=== PATIENT | male | born 1960 | race Caucasian/White ===

== ENCOUNTER 2018-02-22 15:28 | Inpatient (IN) | payer MEDICAID ==
[2018-02-22] MEDS ORDERED: Sodium Chloride 0.9% 1,000 ML IV ONE ×2 (16:46→20:26)
[2018-02-22] MEDS ORDERED: Sodium Chloride 0.9% 1,000 ML ONE (17:04)
[2018-02-22 17:05] LABS: BASO % 0.2 % (0.0-2.0); EOS % 0.3 % (0.0-4.0); LYMPH # 2.1 K/uL (1.0-4.3); LYMPH % 18.6 % (20.0-40.0); MEAN CELL VOLUME 78.7 fL (80.0-94.0); MEAN CORPUSCULAR HEMOGLOBIN 25.7 pg (27.0-31.0); MEAN CORPUSCULAR HGB CONC 32.7 g/dL (33.0-37.0); MEAN PLATELET VOLUME 7.7 fL (7.2-11.7); MONO % 8.8 % (0.0-10.0); NEUT # 8.1 K/uL (1.8-7.0); NEUT % 72.1 % (50.0-75.0); RBC 3.88 Mil/uL (4.40-5.90); RED CELL DISTRIBUTION WIDTH 16.6 % (11.5-14.5); WHITE BLOOD COUNT 11.2 K/uL (4.8-10.8)
[2018-02-22] MEDS ORDERED: Albuterol-Ipratrop 3 mg / 0.5 (3 ml) UD INH STA (17:06)
[2018-02-22] MEDS ORDERED: Albuterol-Ipratrop 3 mg / 0.5 (3 ml) UD ONE (17:17)
[2018-02-22 17:19] LABS: ALB/GLOB RATIO 0.9 (1.0-2.1); ALBUMIN 3.9 g/dL (3.5-5.0); ALT/SGPT 9 U/L (21-72); AST/SGOT 19 U/L (17-59); BLOOD UREA NITROGEN 28 mg/dL (9-20); CALCIUM 9.5 mg/dl (8.6-10.4); GFR AFRICAN-AMERICAN 40; GFR NON-AFRICAN AMERICAN 33
[2018-02-22 17:31] LABS: B-TYPE NATRIURETIC PEPTIDE 188 pg/mL (0-900)
--- NOTE | 2018-02-22 17:47 | RAD ---
HISTORY: Shortness of breath. COMPARISON: No prior. TECHNIQUE: Chest PA and lateral FINDINGS: LUNGS: No active pulmonary disease. PLEURA: No significant pleural effusion identified. No pneumothorax apparent. CARDIOVASCULAR: No radiographic findings to suggest acute or significant cardiovascular disease. OSSEOUS STRUCTURES: No significant abnormalities. VISUALIZED UPPER ABDOMEN: Normal. OTHER FINDINGS: None. IMPRESSION: No active disease.
[2018-02-22] MEDS ORDERED: Azithromycin 500mg/250ML NS 500 MG/250 ML BAG IV STA (20:26)
[2018-02-22] MEDS ORDERED: cefTRIAXone IV 1 gm in Dextros 50 ML IV STA (20:26)
--- NOTE | 2018-02-22 20:37 | C.PDOC ---
History Of Present Illness 57yo male, with history of angioplasty with 4 cardiac stents, diabetes, hypertension, high cholesterol, presents to ER for 1 month of worsening cough and chest pain. Patient was evaluated by his PMD Dr. Iglesias today and was informed to come to the ER for further evaluation. He reports associated fever, productive cough and generalized malaise. He also reports dysuria, and states has a history of hematuira but none now. PMD: Angel Iglesias Time Seen by Provider: 02/22/18 16:05 Chief Complaint (Nursing): Chest Pain History Per: Patient History/Exam Limitations: no limitations Onset/Duration Of Symptoms: Persistent Current Symptoms Are (Timing): Still Present Past Medical History Reviewed: Historical Data, Nursing Documentation, Vital Signs Vital Signs: Last Vital Signs Temp 99 F 02/23/18 16:00 Pulse 88 02/23/18 18:00 Resp 28 H 02/23/18 17:59 BP 119/62 02/23/18 17:59 Pulse Ox 96 02/23/18 17:59 - Medical History PMH: HTN Surgical History: No Surg Hx Family History: States: No Known Family Hx - Social History Hx Tobacco Use: No Hx Alcohol Use: No Hx Substance Use: No Review Of Systems Except As Marked, All Systems Reviewed And Found Negative. Constitutional: Positive for: Fever, Weakness, Malaise. Negative for: Chills, Sweats Eyes: Negative for: Pain, Vision Change, Conjunctivae Inflammation ENT: Negative for: Ear Pain, Ear Discharge, Nose Pain Cardiovascular: Positive for: Chest Pain, Light Headedness. Negative for: Palpitations, Orthopnea, Paroxysmal Noc. Dyspnea, Edema Respiratory: Positive for: Cough, Shortness of Breath, SOB with Excertion, Sputum. Negative for: Hemoptysis Gastrointestinal: Positive for: Nausea, Vomiting. Negative for: Abdominal Pain , Constipation, Melena, Hematochezia, Hematemesis Genitourinary: Positive for: Dysuria, Hematuria (history of hematuria, none at present) Musculoskeletal: Negative for: Neck Pain Skin: Negative for: Rash Neurological: Positive for: Weakness, Headache. Negative for: Numbness, Incoordination Psych: Negative for: Anxiety, Depression Physical Exam - Physical Exam Appears: Toxic, No Acute Distress Skin: Normal Color, Warm, Dry Head: Atraumatic, Normacephalic Eye(s): bilateral: Normal Inspection, PERRL, EOMI Ear(s): Bilateral: Normal Nose: Normal Oral Mucosa: Moist Tongue: Normal Appearing Lips: Normal Appearing Teeth: Normal Dentition Gingiva: Normal Appearing Throat: Normal Neck: Normal ROM, Supple Chest: Symmetrical Cardiovascular: Rhythm Regular Respiratory: Decreased Breath Sounds Gastrointestinal/Abdominal: Normal Exam, Soft, No Tenderness Back: Normal Inspection Extremity: Normal ROM, No Pedal Edema Extremity: Bilateral: Atraumatic, No Pedal Edema, Normal Color And Temperature, Normal ROM Neurological/Psych: Oriented x3 ED Course And Treatment - Laboratory Results Result Diagrams: 02/23/18 06:29 02/23/18 06:29 ECG: Interpreted By Me, Viewed By Me ECG Rhythm: Sinus Rhythm Interpretation Of ECG: MD 170. QRS 72. QT 358. QTC 442. No ischemic changes Rate From EC O2 Sat by Pulse Oximetry: 97 (RA) Pulse Ox Interpretation: Normal Medical Decision Making Medical Decision Making: Impression: Chest pain, shortness of breath Plan: -- Labs -- IV Fluids -- EKG -- Rapid flu Time: 1799 CXR reviewed and shows no acute findings. CT Chest w/o contrast ordered as patient has history of renal insufficiency Time: 2025 Serology reviewed and patient negative for influenza Labs reviewed and show white count of 11.2 BUN and creatinine elevated. Patient to be given 2nd liter of fluids Broad spectrum IV antibiotics given, tylenol given and lactate ordered. Time: 2030 CT Chest w/o contrast FINDINGS: LUNGS: Minimal dependent atelectasis. PLEURAL SPACE: No pneumothorax. No significant effusion. HEART: No cardiomegaly. No significant pericardial effusion. THYROID: 1.6cm right thyroid nodule. BONES/JOINTS: Unremarkable. No acute fracture. SOFT TISSUES: Unremarkable. VASCULATURE: Unremarkable. No thoracic aortic aneurysm. LYMPH NODES: Unremarkable. No enlarged lymph nodes. IMPRESSION: 1. 1.6cm right thyroid nodule. 2. Minimal dependent atelectasis. Time: [address] Iglesias, and patient to be admitted under his service. Disposition Counseled Patient/Family Regarding: Diagnosis - Disposition Disposition: HOSPITALIZED Disposition Time: 19:44 Condition: GOOD - Clinical Impression Clinical Impression: Chest pain, Pneumonia - Scribe Statement The provider has reviewed the documentation as recorded by the Scribe (Nikky Scott) Provider Attestation: All medical record entries made by the Scribe were at my direction and personally dictated by me. I have reviewed the chart and agree that the record accurately reflects my personal performance of the history, physical exam, medical decision making, and the department course for this patient. I have also personally directed, reviewed, and agree with the discharge instructions and disposition.
[2018-02-22] MEDS: Sodium Chloride 0.9% 1,000 ML IV SCH (23:13)
[2018-02-22] MEDS: (Novolin R) Insulin Human Regular 100 units/ml vial SC SCH (23:14)
[2018-02-23] MEDS ORDERED: Albuterol-Ipratrop 3 mg / 0.5 (3 ml) UD INH STA (00:43)
[2018-02-23] MEDS ORDERED: Albuterol-Ipratrop 3 mg / 0.5 (3 ml) UD ONE (00:50)
[2018-02-23] MEDS ORDERED: Albuterol-Ipratrop 3 mg / 0.5 (3 ml) UD INH SCH (02:00)
[2018-02-23 06:06] LABS: SQUAMOUS EPITHIAL < 1 /hpf (0-5); URINE BACTERIA FEW (<OCC); URINE BILIRUBIN NEGATIVE (NEGATIVE); URINE BLOOD 1+ (NEGATIVE); URINE CLARITY Hazy (Clear); URINE COLOR Straw (YELLOW); URINE GLUCOSE (UA) 3+ mg/dL (Normal); URINE LEUKOCYTE ESTERASE 3+ Leu/uL (Negative); URINE PROTEIN NEGATIVE (NEGATIVE); URINE UROBILINOGEN NORMAL mg/dL (0.2-1.0)
[2018-02-23 06:38] LABS: BASO % 0.3 % (0.0-2.0); EOS % 0.1 % (0.0-4.0); HEMOGLOBIN 9.5 g/dL (12.0-18.0); LYMPH # 1.7 K/uL (1.0-4.3); LYMPH % 15.6 % (20.0-40.0); MEAN CELL VOLUME 79.8 fL (80.0-94.0); MEAN CORPUSCULAR HEMOGLOBIN 26.3 pg (27.0-31.0); MEAN PLATELET VOLUME 7.7 fL (7.2-11.7); MONO # 0.8 K/uL (0.0-0.8); MONO % 7.9 % (0.0-10.0); NEUT # 8.1 K/uL (1.8-7.0); NEUT % 76.1 % (50.0-75.0); NRBC % 0.1 % (0.0-2.0); RBC 3.63 Mil/uL (4.40-5.90); RED CELL DISTRIBUTION WIDTH 16.6 % (11.5-14.5); WHITE BLOOD COUNT 10.7 K/uL (4.8-10.8)
[2018-02-23] MEDS ORDERED: Albuterol 0.083% Inhal Sol (2.5 mg/3 mL) UD INH SCH (08:00)
[2018-02-23] MEDS: Albuterol 0.083% Inhal Sol (2.5 mg/3 mL) UD INH SCH ×3 (08:22→19:45)
[2018-02-23] MEDS: Ipratropium 0.02% Inhal Soln (0.5 mg/2.5 ml) UD IH SCH ×3 (08:24→19:45)
[2018-02-23] MEDS: (Novolin R) Insulin Human Regular 100 units/ml vial SC SCH ×5 (08:25→21:58)
[2018-02-23] MEDS: Sodium Chloride 0.9% 1,000 ML IV SCH ×2 (08:29→21:00)
--- NOTE | 2018-02-23 09:13 | CT ---
PROCEDURE: CT Chest without contrast HISTORY: sob fever COMPARISON: Chest x-ray 02/22/2018 TECHNIQUE: Contiguous axial images were obtained through the chest without intravenous contrast enhancement. Sagittal and coronal reconstructions were performed. Radiation dose (DLP): 383 mGy-cm. This CT exam was performed using one or more of the following dose reduction techniques: Automated exposure control, adjustment of the mA and/or kV according to patient size, and/or use of iterative reconstruction technique. FINDINGS: LUNGS: There is a 0.4 cm nodule in the right upper lobe (axial series 3, image 33). Small area of ground-glass airspace opacity noted right upper lobe. The trachea and major segmental bronchi are patent. MEDIASTINUM: Heart size is within normal limits. There is no significant pericardial effusion. Cardiovascular calcifications noted. Thoracic aorta is normal in caliber. Main pulmonary artery is normal in caliber. There is no significant axillary, mediastinal, or hilar lymphadenopathy. PLEURA: No pleural effusion is identified. BONES: No acute fracture identified. Small sclerotic focus in the of right 2nd rib, likely bone island. UPPER ABDOMEN: Partially visualized colonic diverticulosis. Splenomegaly. Remainder of the visualized upper abdominal viscera are grossly unremarkable. OTHER FINDINGS: There is a 1.4 cm hypodense nodule in the posterior right lobe of the thyroid. Visualized thyroid gland is mildly heterogeneous. Mild bilateral gynecomastia. IMPRESSION: Small focus ground-glass airspace opacity right upper lobe. Findings may represent infectious/ inflammatory process. Right upper lobe 0.4 cm nodule. Consider follow-up CT chest in 12 months depending on patient's risk factors. Right lobe thyroid nodule measuring 1.4 cm. Recommend nonemergent/outpatient thyroid ultrasound for further evaluation. Preliminary impression was provided by [facility]. Findings are discordant. Findings discussed with the ER PA, Madonna Crow, at 9:11 a.m. on 02/23/2018.
--- NOTE | 2018-02-23 09:23 | CP.PCM.HP ---
History of Present Illness - History of Present Illness History of Present Illness: CC: chest pain HPI: 57yo male, with history of angioplasty with 4 cardiac stents, diabetes, hypertension, high cholesterol, presents to ER for 1 month of worsening cough and chest pain. Patient was evaluated by me today and was informed to come to the ER for further evaluation. He reports associated fever, productive cough and generalized malaise. He also reports dysuria, and states has a history of hematuira but none now. Present on Admission - Present on Admission Any Indicators Present on Admission: No Past Patient History - Past Medical History & Family History Past Medical History?: Yes - Past Social History Smoking Status: Unknown If Ever Smoked - CARDIAC Hx Hypertension: Yes - PULMONARY Hx Pneumonia: Yes - ENDOCRINE/METABOLIC Hx Diabetes Mellitus Type 2: Yes - MUSCULOSKELETAL/RHEUMATOLOGICAL Hx Falls: No - PSYCHIATRIC Hx Substance Use: No - SURGICAL HISTORY Hx Surgeries: No Hx Coronary Stent: Yes - ANESTHESIA Hx Anesthesia: Yes Hx Anesthesia Reactions: No Hx Malignant Hyperthermia: No Has any member of the family had a problem w/ anesthesia?: No Meds Allergies/Adverse Reactions: Allergies Allergy/AdvReac Type Severity Reaction Status Date / Time No Known Allergies Allergy Unverified 02/22/18 16:09 Results - Vital Signs Recent Vital Signs: Last Vital Signs Temp 98.8 F 02/23/18 04:02 Pulse 91 H 02/23/18 06:40 Resp 28 H 02/23/18 06:40 BP 118/67 02/23/18 05:58 Pulse Ox 98 02/23/18 06:40 - Labs Result Diagrams: 02/23/18 06:29 02/23/18 06:29 Labs: Laboratory Results - last 24 hr 02/22/18 02/22/18 02/22/18 17:01 17:01 22:08 WBC 11.2 H RBC 3.88 L Hgb 10.0 L Hct 30.5 L MCV 78.7 L MCH 25.7 L MCHC 32.7 L RDW 16.6 H Plt Count 267 MPV 7.7 Neut % (Auto) 72.1 Lymph % (Auto) 18.6 L [place] % (Auto) 8.8 Eos % (Auto) 0.3 Baso % (Auto) 0.2 Neut # (Auto) 8.1 H Lymph # (Auto) 2.1 Lawrence # (Auto) 1.0 H Eos # (Auto) 0.0 Baso # (Auto) 0.0 Sodium 140 Potassium 5.1 Chloride 105 Carbon Dioxide 23 Anion Gap 18 BUN 28 H Creatinine 2.1 H Est GFR ( Amer) 40 Est GFR (Non-Af Amer) 33 POC Glucose (mg/dL) 123 H Random Glucose 124 H Lactic Acid Calcium 9.5 Total Bilirubin 0.6 AST 19 ALT 9 L Alkaline Phosphatase 59 Troponin I < 0.0120 NT-Pro-B Natriuret Pep 188 Total Protein 8.1 Albumin 3.9 Globulin 4.2 H Albumin/Globulin Ratio 0.9 L Urine Color Urine Clarity Urine pH Ur Specific [place] Urine Protein Urine Glucose (UA) Urine Ketones Urine Blood Urine Nitrate Urine Bilirubin Urine Urobilinogen Ur Leukocyte Esterase Urine WBC (Auto) Urine RBC (Auto) Ur Squamous Epith Cells Urine Bacteria Urine Yeast (Budding) Influenza Typ A,B (EIA) 02/22/18 02/22/18 02/23/18 22:35 Unknown 05:50 WBC RBC Hgb Hct MCV MCH MCHC RDW Plt Count MPV Neut % (Auto) Lymph % (Auto) [place] % (Auto) Eos % (Auto) Baso % (Auto) Neut # (Auto) Lymph # (Auto) [place] # (Auto) Eos # (Auto) Baso # (Auto) Sodium Potassium Chloride Carbon Dioxide Anion Gap BUN Creatinine Est GFR ( Amer) Est GFR (Non-Af Amer) POC Glucose (mg/dL) Random Glucose Lactic Acid 0.9 Calcium Total Bilirubin AST ALT Alkaline Phosphatase Troponin I NT-Pro-B Natriuret Pep Total Protein Albumin Globulin Albumin/Globulin Ratio Urine Color Straw Urine Clarity Hazy Urine pH 6.0 Ur Specific [place] 1.010 Urine Protein Negative Urine Glucose (UA) 3+ H Urine Ketones Negative Urine Blood 1+ H Urine Nitrate Negative Urine Bilirubin Negative Urine Urobilinogen Normal Ur Leukocyte Esterase 3+ H Urine WBC (Auto) 163 H Urine RBC (Auto) 11 H Ur Squamous Epith Cells < 1 Urine Bacteria Few H Urine Yeast (Budding) Few H Influenza Typ A,B (EIA) Negative for flu a/b 02/23/18 02/23/18 02/23/18 06:29 06:29 07:26 WBC 10.7 RBC 3.63 L Hgb 9.5 L Hct 29.0 L MCV 79.8 L MCH 26.3 L MCHC 33.0 RDW 16.6 H Plt Count 233 MPV 7.7 Neut % (Auto) 76.1 H Lymph % (Auto) 15.6 L [place] % (Auto) 7.9 Eos % (Auto) 0.1 Baso % (Auto) 0.3 Neut # (Auto) 8.1 H Lymph # (Auto) 1.7 Lawrence # (Auto) 0.8 Eos # (Auto) 0.0 Baso # (Auto) 0.0 Sodium 144 Potassium 5.1 Chloride 112 H Carbon Dioxide 18 L Anion Gap 19 BUN 26 H Creatinine 1.6 H Est GFR ( Amer) 55 Est GFR (Non-Af Amer) 45 POC Glucose (mg/dL) 203 H Random Glucose 183 H Lactic Acid Calcium 9.0 Total Bilirubin AST ALT Alkaline Phosphatase Troponin I NT-Pro-B Natriuret Pep Total Protein Albumin Globulin Albumin/Globulin Ratio Urine Color Urine Clarity Urine pH Ur Specific [place] Urine Protein Urine Glucose (UA) Urine Ketones Urine Blood Urine Nitrate Urine Bilirubin Urine Urobilinogen Ur Leukocyte Esterase Urine WBC (Auto) Urine RBC (Auto) Ur Squamous Epith Cells Urine Bacteria Urine Yeast (Budding) Influenza Typ A,B (EIA)
[2018-02-23] MEDS ORDERED: Omega-3-Acid Ethyl Esters 1 GM Cap PO SCH (10:00)
[2018-02-23] MEDS: Omega-3-Acid Ethyl Esters 1 GM Cap PO SCH ×2 (10:35→18:28)
[2018-02-23] MEDS: Azithromycin 500 MG in Sodium Chloride 0.9% 250 ML IVPB SCH (12:11)
--- NOTE | 2018-02-23 12:12 | CARD ---
APPROVED REPORT EKG Measurement Heart [id number] <Conclusion> Normal sinus rhythm Normal ECG
[2018-02-23] MEDS: Metoprolol Succinate 50 mg XL Tab PO SCH (12:45)
--- NOTE | 2018-02-23 13:37 | CP.PCM.PN ---
Subjective - Date & Time of Evaluation Date of Evaluation: 02/23/18 Time of Evaluation: 13:34 - Subjective Subjective: PT AND DAUGHTER REQUESTED TO BE SEEN BY DR. HAMILTON TO DISCUSS PT'S PLAN FOR DISCHARGE PT IS REQUESTING TO GO HOME TODAY. I NOTIFIED DR. HAMILTON OF THIS WHO STATED PT CAN AMA W A RX FOR AUGMENTIN X7 DAYS IF HE DOES NOT WANT TO STAY IN THE HOSPITAL. I SPOKE AT LENGTH WITH PT AND DAUGHTER AND ADDRESSED ALL CONCERNS. REVIEWED VITALS AND LABS W THEM WELL. PT ADMITS TO FEELING "A LITTLE BETTER BUT NOT MUCH." ALSO ADMITS TO COUGHING "ALOT." I ENCOURAGED PT TO STAY UNTIL AT LEAST TOMORROW TO CONTINUE IV ABX AND IVFS. HE WILL BE RE-EVAL' D TOMORROW FOR POSSIBLE D/C IF HE REMAINS STABLE AND AFEBRILE. REPEAT LABS ORDERED FOR TOMORROW MORNING. WILL F/U TOMORROW. NO FURTHER ORDERS AT THIS TIME. Objective - Vital Signs/Intake and Output Vital Signs (last 24 hours): Temp Pulse Resp BP Pulse Ox 99.6 F 84 29 H 120/61 98 02/23/18 08:00 02/23/18 11:59 02/23/18 11:59 02/23/18 11:59 02/23/18 11:59 Intake and Output: 02/23/18 02/23/18 06:59 18:59 Intake Total 2750 100 Output Total 1550 0 Balance 1200 100 - Medications Medications: Current Medications Acetaminophen (Tylenol 325mg Tab) 650 mg PO Q6 PRN PRN Reason: Fever >100.4 F Albuterol Sulfate (Albuterol 0.083% Inhal Jen (2.5 Mg/3 Ml) Ud) 2.5 mg INH RQ6 [facility] Last Admin: 02/23/18 08:22 Dose: 2.5 mg Aspirin (Aspirin Chewable) 81 mg PO DAILY [facility] Last Admin: 02/23/18 10:12 Dose: 81 mg Fenofibrate (Tricor) 145 mg PO DAILY [facility] Last Admin: 02/23/18 10:34 Dose: 145 mg Glipizide (Glucotrol) 10 mg PO BID [facility] Last Admin: 02/23/18 10:00 Dose: Not Given Heparin Sodium (Porcine) (Heparin) 5,000 units SC Q8 [facility] Last Admin: 02/23/18 06:28 Dose: 5,000 units Ceftriaxone Sodium 1 gm/ (Sodium Chloride) 100 mls @ 100 mls/hr IVPB DAILY [facility] PRN Reason: Protocol Last Admin: 02/23/18 10:12 Dose: 100 mls/hr Sodium Chloride (Sodium Chloride 0.9%) 1,000 mls @ 100 mls/hr IV .Q10H [facility] Last Admin: 02/23/18 08:29 Dose: 100 mls/hr Azithromycin 500 mg/ Sodium (Chloride) 250 mls @ 250 mls/hr IVPB DAILY [facility] PRN Reason: Protocol Last Admin: 02/23/18 12:11 Dose: 250 mls/hr Insulin Human Regular (Novolin R) 0 unit SC ACHS [facility] PRN Reason: Protocol Last Admin: 02/23/18 12:43 Dose: 3 unit Ipratropium [place] (Atrovent) 0.5 mg IH RQ6 [facility] Last Admin: 02/23/18 08:24 Dose: 0.5 mg Metoprolol Succinate (Toprol Xl) 50 mg PO DAILY [facility] Last Admin: 02/23/18 12:45 Dose: 50 mg Katte-8-Vsmy Ethyl Esters (Lovaza) 2 gm PO BID [facility] Last Admin: 02/23/18 10:35 Dose: 2 gm - Labs Labs: 02/23/18 06:29 02/23/18 06:29
[2018-02-24] MEDS: Albuterol 0.083% Inhal Sol (2.5 mg/3 mL) UD INH SCH ×4 (01:12→20:40)
[2018-02-24] MEDS: Ipratropium 0.02% Inhal Soln (0.5 mg/2.5 ml) UD IH SCH ×4 (01:12→20:40)
--- NOTE | 2018-02-24 01:19 | CP.PCM.PN ---
Subjective - Date & Time of Evaluation Date of Evaluation: 02/23/18 Time of Evaluation: 21:00 - Subjective Subjective: Pt is started feeling better, positive cough, less short of breath, pt came in with fever, weakness, he is knwn diabetic, he is non complaint with diet, medication and follow up, pt has been diagnosed with pnemonia Objective - Vital Signs/Intake and Output Vital Signs (last 24 hours): Temp Pulse Resp BP Pulse Ox 99.1 F 83 33 H 114/64 97 02/23/18 20:00 02/23/18 22:00 02/23/18 22:00 02/23/18 21:59 02/23/18 22:00 Intake and Output: 02/23/18 02/24/18 18:59 06:59 Intake Total 1810 500 Output Total 1100 400 Balance 710 100 - Medications Medications: Current Medications Acetaminophen (Tylenol 325mg Tab) 650 mg PO Q6 PRN PRN Reason: Fever >100.4 F Albuterol Sulfate (Albuterol 0.083% Inhal Jen (2.5 Mg/3 Ml) Ud) 2.5 mg INH RQ6 [facility] Last Admin: 02/24/18 01:12 Dose: 2.5 mg Aspirin (Aspirin Chewable) 81 mg PO DAILY [facility] Last Admin: 02/23/18 10:12 Dose: 81 mg Fenofibrate (Tricor) 145 mg PO DAILY [facility] Last Admin: 02/23/18 10:34 Dose: 145 mg Glipizide (Glucotrol) 10 mg PO BID [facility] Last Admin: 02/23/18 18:27 Dose: Not Given Heparin Sodium (Porcine) (Heparin) 5,000 units SC Q8 [facility] Last Admin: 02/23/18 21:01 Dose: 5,000 units Ceftriaxone Sodium 1 gm/ (Sodium Chloride) 100 mls @ 100 mls/hr IVPB DAILY [facility] PRN Reason: Protocol Last Admin: 02/23/18 10:12 Dose: 100 mls/hr Sodium Chloride (Sodium Chloride 0.9%) 1,000 mls @ 100 mls/hr IV .Q10H [facility] Last Admin: 02/23/18 21:00 Dose: 100 mls/hr Azithromycin 500 mg/ Sodium (Chloride) 250 mls @ 250 mls/hr IVPB DAILY [facility] PRN Reason: Protocol Last Admin: 02/23/18 12:11 Dose: 250 mls/hr Insulin Human Regular (Novolin R) 0 unit SC ACHS [facility] PRN Reason: Protocol Last Admin: 02/23/18 21:58 Dose: Not Given Ipratropium [place] (Atrovent) 0.5 mg IH RQ6 [facility] Last Admin: 02/24/18 01:12 Dose: 0.5 mg Metoprolol Succinate (Toprol Xl) 50 mg PO DAILY [facility] Last Admin: 02/23/18 12:45 Dose: 50 mg Vdupg-9-Egxy Ethyl Esters (Lovaza) 2 gm PO BID [facility] Last Admin: 02/23/18 18:28 Dose: 2 gm Ondansetron HCl (Zofran Inj) 4 mg IVP Q6 PRN PRN Reason: Nausea/Vomiting Last Admin: 02/23/18 15:24 Dose: 4 mg - Labs Labs: 02/23/18 06:29 02/23/18 06:29 - Constitutional Appears: No Acute Distress - Head Exam Head Exam: ATRAUMATIC, NORMAL INSPECTION, NORMOCEPHALIC - Eye Exam Eye Exam: EOMI, Normal appearance, PERRL Pupil Exam: NORMAL ACCOMODATION, PERRL - Respiratory Exam Respiratory Exam: Decreased Breath Sounds, Rales, Rhonchi - Cardiovascular Exam Cardiovascular Exam: REGULAR RHYTHM, +S1, +S2. absent: Murmur - GI/Abdominal Exam GI & Abdominal Exam: Soft, Normal Bowel Sounds. absent: Tenderness - Rectal Exam Rectal Exam: Deferred Assessment and Plan (1) Chest pain Status: Acute (2) Pneumonia Status: Acute (3) Diabetes Status: Acute
[2018-02-24] MEDS: Sodium Chloride 0.9% 1,000 ML IV SCH ×2 (04:15→13:33)
[2018-02-24 06:06] VITALS: RESP 20
[2018-02-24 06:09] LABS: HEMOGLOBIN 9.3 g/dL (12.0-18.0); MEAN CELL VOLUME 79.5 fL (80.0-94.0); MEAN CORPUSCULAR HEMOGLOBIN 26.1 pg (27.0-31.0); MEAN CORPUSCULAR HGB CONC 32.9 g/dL (33.0-37.0); MEAN PLATELET VOLUME 7.8 fL (7.2-11.7); RBC 3.57 Mil/uL (4.40-5.90); RED CELL DISTRIBUTION WIDTH 16.4 % (11.5-14.5); WHITE BLOOD COUNT 8.8 K/uL (4.8-10.8)
[2018-02-24 06:34] LABS: BLOOD UREA NITROGEN 19 mg/dL (9-20); CALCIUM 8.9 mg/dl (8.6-10.4); GFR AFRICAN-AMERICAN > 60; GFR NON-AFRICAN AMERICAN 53
[2018-02-24] MEDS: (Novolin R) Insulin Human Regular 100 units/ml vial SC SCH ×4 (08:30→21:36)
[2018-02-24] MEDS: Metoprolol Succinate 50 mg XL Tab PO SCH (09:57)
[2018-02-24] MEDS: Omega-3-Acid Ethyl Esters 1 GM Cap PO SCH ×2 (09:58→17:33)
[2018-02-24] MEDS: Azithromycin 500 MG in Sodium Chloride 0.9% 250 ML IVPB SCH (10:27)
--- NOTE | 2018-02-24 23:51 | CP.PCM.PN ---
Subjective - Date & Time of Evaluation Date of Evaluation: 02/24/18 Time of Evaluation: 19:00 - Subjective Subjective: Pt is seen and evaluated at bedside, improving, pt is feeling better, BUN/ Creatinine is improving, afberile, cough and congested. Objective - Vital Signs/Intake and Output Vital Signs (last 24 hours): Temp Pulse Resp BP Pulse Ox 98.3 F 67 20 118/76 96 02/24/18 17:05 02/24/18 17:05 02/24/18 17:05 02/24/18 17:05 02/24/18 17:05 - Medications Medications: Current Medications Acetaminophen (Tylenol 325mg Tab) 650 mg PO Q6 PRN PRN Reason: Fever >100.4 F Albuterol Sulfate (Albuterol 0.083% Inhal Jen (2.5 Mg/3 Ml) Ud) 2.5 mg INH RQ6 [facility] Last Admin: 02/24/18 20:40 Dose: 2.5 mg Aspirin (Aspirin Chewable) 81 mg PO DAILY [facility] Last Admin: 02/24/18 09:57 Dose: 81 mg Fenofibrate (Tricor) 145 mg PO DAILY [facility] Last Admin: 02/24/18 10:15 Dose: 145 mg Glipizide (Glucotrol) 10 mg PO BID [facility] Last Admin: 02/24/18 17:33 Dose: 10 mg Heparin Sodium (Porcine) (Heparin) 5,000 units SC Q8 [facility] Last Admin: 02/24/18 21:38 Dose: 5,000 units Ceftriaxone Sodium 1 gm/ (Sodium Chloride) 100 mls @ 100 mls/hr IVPB DAILY [facility] PRN Reason: Protocol Last Admin: 02/24/18 09:57 Dose: 100 mls/hr Sodium Chloride (Sodium Chloride 0.9%) 1,000 mls @ 100 mls/hr IV .Q10H [facility] Last Admin: 02/24/18 13:33 Dose: Not Given Azithromycin 500 mg/ Sodium (Chloride) 250 mls @ 250 mls/hr IVPB DAILY [facility] PRN Reason: Protocol Last Admin: 02/24/18 10:27 Dose: 250 mls/hr Insulin Human Regular (Novolin R) 0 unit SC ACHS [facility] PRN Reason: Protocol Last Admin: 02/24/18 21:36 Dose: Not Given Ipratropium [place] (Atrovent) 0.5 mg IH RQ6 [facility] Last Admin: 02/24/18 20:40 Dose: 0.5 mg Metoprolol Succinate (Toprol Xl) 50 mg PO DAILY [facility] Last Admin: 02/24/18 09:57 Dose: 50 mg Byani-9-Cbxv Ethyl Esters (Lovaza) 2 gm PO BID [facility] Last Admin: 02/24/18 17:33 Dose: 2 gm Ondansetron HCl (Zofran Inj) 4 mg IVP Q6 PRN PRN Reason: Nausea/Vomiting Last Admin: 02/23/18 15:24 Dose: 4 mg Pneumococcal Polyvalent Vaccine (Pneumovax 23 Vaccine) 0.5 ml IM .ONCE ONE Stop: 02/25/18 10:01 - Labs Labs: 02/24/18 06:01 02/24/18 06:01 - Constitutional Appears: No Acute Distress - Head Exam Head Exam: ATRAUMATIC, NORMAL INSPECTION, NORMOCEPHALIC - Eye Exam Eye Exam: EOMI, Normal appearance, PERRL Pupil Exam: NORMAL ACCOMODATION, PERRL - Respiratory Exam Respiratory Exam: Decreased Breath Sounds, Rales, Rhonchi - Cardiovascular Exam Cardiovascular Exam: REGULAR RHYTHM, +S1, +S2. absent: Murmur - GI/Abdominal Exam GI & Abdominal Exam: Soft, Normal Bowel Sounds. absent: Tenderness Assessment and Plan (1) Chest pain Status: Acute (2) Pneumonia Status: Acute (3) Diabetes Status: Acute
[2018-02-25] MEDS: Sodium Chloride 0.9% 1,000 ML IV SCH ×2 (00:53→09:57)
[2018-02-25] MEDS: Albuterol 0.083% Inhal Sol (2.5 mg/3 mL) UD INH SCH ×2 (01:46→07:55)
[2018-02-25] MEDS: Ipratropium 0.02% Inhal Soln (0.5 mg/2.5 ml) UD IH SCH (01:47)
[2018-02-25 07:40] LABS: HEMOGLOBIN 9.7 g/dL (12.0-18.0); MEAN CELL VOLUME 78.9 fL (80.0-94.0); MEAN CORPUSCULAR HEMOGLOBIN 26.3 pg (27.0-31.0); MEAN CORPUSCULAR HGB CONC 33.3 g/dL (33.0-37.0); MEAN PLATELET VOLUME 7.5 fL (7.2-11.7); RBC 3.68 Mil/uL (4.40-5.90); RED CELL DISTRIBUTION WIDTH 16.6 % (11.5-14.5); WHITE BLOOD COUNT 6.2 K/uL (4.8-10.8)
[2018-02-25 07:55] VITALS: BP 134/82; PULSE 70; TEMP 98; O2SAT 100
[2018-02-25 07:58] LABS: BLOOD UREA NITROGEN 14 mg/dL (9-20); CALCIUM 9.1 mg/dl (8.6-10.4); GFR AFRICAN-AMERICAN > 60; GFR NON-AFRICAN AMERICAN 53
[2018-02-25] MEDS: (Novolin R) Insulin Human Regular 100 units/ml vial SC SCH (08:30)
[2018-02-25] MEDS: Metoprolol Succinate 50 mg XL Tab PO SCH (09:49)
[2018-02-25] MEDS: Omega-3-Acid Ethyl Esters 1 GM Cap PO SCH (09:49)
[2018-02-25] MEDS ORDERED: Pneumococcal 23-Valent Vaccine IM ONE (10:00)
--- NOTE | 2018-02-25 11:56 | CP.PCM.PN ---
Subjective - Date & Time of Evaluation Date of Evaluation: 02/25/18 Time of Evaluation: 11:56 - Subjective Subjective: PATIENT IS ADMITTED FOR PNA AND SEPSIS AAOX3/ ON ROOM AIR/ DAUGHTER AT THE BEDSIDE NO SIGN OF DISTRESS NOTED Objective - Vital Signs/Intake and Output Vital Signs (last 24 hours): Temp Pulse Resp BP Pulse Ox 98.0 F 70 20 134/82 100 02/25/18 07:10 02/25/18 07:10 02/25/18 07:10 02/25/18 07:10 02/25/18 07:10 - Medications Medications: Current Medications Acetaminophen (Tylenol 325mg Tab) 650 mg PO Q6 PRN PRN Reason: Fever >100.4 F Albuterol Sulfate (Albuterol 0.083% Inhal Jen (2.5 Mg/3 Ml) Ud) 2.5 mg INH RQ6 [facility] Last Admin: 02/25/18 07:55 Dose: 2.5 mg Aspirin (Aspirin Chewable) 81 mg PO DAILY [facility] Last Admin: 02/25/18 09:50 Dose: 81 mg Fenofibrate (Tricor) 145 mg PO DAILY [facility] Last Admin: 02/25/18 09:49 Dose: 145 mg Glipizide (Glucotrol) 10 mg PO BID [facility] Last Admin: 02/25/18 09:49 Dose: 10 mg Heparin Sodium (Porcine) (Heparin) 5,000 units SC Q8 [facility] Last Admin: 02/25/18 05:00 Dose: 5,000 units Ceftriaxone Sodium 1 gm/ (Sodium Chloride) 100 mls @ 100 mls/hr IVPB DAILY [facility] PRN Reason: Protocol Last Admin: 02/25/18 09:54 Dose: 100 mls/hr Sodium Chloride (Sodium Chloride 0.9%) 1,000 mls @ 100 mls/hr IV .Q10H [facility] Last Admin: 02/25/18 09:57 Dose: 100 mls/hr Azithromycin 500 mg/ Sodium (Chloride) 250 mls @ 250 mls/hr IVPB DAILY [facility] PRN Reason: Protocol Last Admin: 02/24/18 10:27 Dose: 250 mls/hr Insulin Human Regular (Novolin R) 0 unit SC ACHS [facility] PRN Reason: Protocol Last Admin: 02/25/18 08:30 Dose: 2 unit Ipratropium [place] (Atrovent) 0.5 mg IH RQ6 [facility] Last Admin: 02/25/18 01:47 Dose: 0.5 mg Metoprolol Succinate (Toprol Xl) 50 mg PO DAILY [facility] Last Admin: 02/25/18 09:49 Dose: 50 mg Suits-7-Yvun Ethyl Esters (Lovaza) 2 gm PO BID [facility] Last Admin: 02/25/18 09:49 Dose: 2 gm Ondansetron HCl (Zofran Inj) 4 mg IVP Q6 PRN PRN Reason: Nausea/Vomiting Last Admin: 02/23/18 15:24 Dose: 4 mg - Labs Labs: 02/25/18 07:31 02/25/18 07:31 Assessment and Plan - Assessment and Plan (Free Text) Assessment: PATIENT SEEN AND EXAMINED WITH PMD AT THE BEDSIDE NO FEVER/VITALS ARE NORMAL/NO LEUKOCYTOSIS NOTED DISCUSS WTIH DR HAMILTON WHO CLEAR PATIENT FOR DC FOLLOW UP WITH DR HAMILTON IN 1-2 WEEK AT HIS OFFICE ---CALL FOR APPOINTMENT CONTINUE ALL YOU HOME MEDICATION NEW PRESCRIPTION BY IMD LEVAQUIN PO FOR 5 DAYS TESSALON PO TID FOR COUGH ACTIVITY TOLERATED CALL DR HAMILTON OR GO TO THE EMERGENCY ROOM IF SYMPTOMS RETURN OR WORSENING DISCUSS WITH PATIENT AND PATIENT DAUGHTER WHO AGREE AND VERBALIZED UNDERSTANDING
--- NOTE | 2018-02-25 16:50 | CP.PCM.DIS ---
Provider - Provider Date of Admission: 02/22/18 20:48 Attending physician: Aakash Iglesias MD Time Spent in preparation of Discharge (in minutes): 45 Diagnosis - Discharge Diagnosis (1) Chest pain Status: Acute (2) Pneumonia Status: Acute (3) Diabetes Status: Acute Hospital Course - Lab Results Lab Results: Micro Results 02/24/18 05:24 Naris MRSA Culture - Final MRSA NOT DETECTED 02/22/18 08:19 Blood Blood Culture - Preliminary NO GROWTH AFTER 48 HOURS 02/22/18 08:19 Blood Blood Culture - Preliminary NO GROWTH AFTER 48 HOURS 02/22/18 17:47 Blood Blood Culture - Preliminary NO GROWTH AFTER 48 HOURS 02/22/18 16:30 Blood Blood Culture - Preliminary NO GROWTH AFTER 48 HOURS 02/23/18 05:50 Urine Urine Culture - Final No Growth (<1,000 CFU/ML) 02/23/18 05:56 Nose MRSA Culture (Admit) - Final MRSA NOT DETECTED Most Recent Lab Values WBC 6.2 K/uL (4.8-10.8) 02/25/18 07:31 RBC 3.68 Mil/uL (4.40-5.90) L 02/25/18 07:31 Hgb 9.7 g/dL (12.0-18.0) L 02/25/18 07:31 Hct 29.0 % (35.0-51.0) L 02/25/18 07:31 MCV 78.9 fL (80.0-94.0) L 02/25/18 07:31 MCH 26.3 pg (27.0-31.0) L 02/25/18 07:31 MCHC 33.3 g/dL (33.0-37.0) 02/25/18 07:31 RDW 16.6 % (11.5-14.5) H 02/25/18 07:31 Plt Count 252 K/uL (130-400) 02/25/18 07:31 MPV 7.5 fL (7.2-11.7) 02/25/18 07:31 Neut % (Auto) 76.1 % (50.0-75.0) H 02/23/18 06:29 Lymph % (Auto) 15.6 % (20.0-40.0) L 02/23/18 06:29 [place] % (Auto) 7.9 % (0.0-10.0) 02/23/18 06:29 Eos % (Auto) 0.1 % (0.0-4.0) 02/23/18 06: Baso % (Auto) 0.3 % (0.0-2.0) 02/23/18 06:29 Neut # (Auto) 8.1 K/uL (1.8-7.0) H 02/23/18 06: Lymph # (Auto) 1.7 K/uL (1.0-4.3) 02/23/18 06:29 [place] # (Auto) 0.8 K/uL (0.0-0.8) 02/23/18 06: Eos # (Auto) 0.0 K/uL (0.0-0.7) 02/23/18 06: Baso # (Auto) 0.0 K/uL (0.0-0.2) 02/23/18 06:29 Sodium 145 mmol/L (132-148) 02/25/18 07:31 Potassium 4.2 mmol/L (3.6-5.2) 02/25/18 07:31 Chloride 111 mmol/L (98-107) H 02/25/18 07:31 Carbon Dioxide 20 mmol/L (22-30) L 02/25/18 07:31 Anion Gap 19 (10-20) 02/25/18 07:31 BUN 14 mg/dL (9-20) 02/25/18 07:31 Creatinine 1.4 mg/dL (0.8-1.5) 02/25/18 07:31 Est GFR ( Amer) > 60 02/25/18 07:31 Est GFR (Non-Af Amer) 53 02/25/18 07:31 POC Glucose (mg/dL) 180 mg/dL (65-110) H 02/25/18 06:17 Random Glucose 164 mg/dL (75-110) H 02/25/18 07:31 Lactic Acid 0.9 mmol/L (0.7-2.1) 02/22/18 22:35 Calcium 9.1 mg/dl (8.6-10.4) 02/25/18 07:31 Total Bilirubin 0.6 mg/dL (0.2-1.3) 02/22/18 17:01 AST 19 U/L (17-59) 02/22/18 17:01 ALT 9 U/L (21-72) L 02/22/18 17:01 Alkaline Phosphatase 59 U/L (38-126) 02/22/18 17:01 Troponin I < 0.0120 ng/mL (0.00-0.120) 02/22/18 17:01 NT-Pro-B Natriuret Pep 188 pg/mL (0-900) 02/22/18 17:01 Total Protein 8.1 g/dL (6.3-8.3) 02/22/18 17:01 Albumin 3.9 g/dL (3.5-5.0) 02/22/18 17:01 Globulin 4.2 gm/dL (2.2-3.9) H 02/22/18 17:01 Albumin/Globulin Ratio 0.9 (1.0-2.1) L 02/22/18 17:01 Urine Color Straw (YELLOW) 02/23/18 05:50 Urine Clarity Hazy (Clear) 02/23/18 05:50 Urine pH 6.0 (5.0-8.0) 02/23/18 05:50 Ur Specific [place] 1.010 (1.003-1.030) 02/23/18 05:50 Urine Protein Negative mg/dL (NEGATIVE) 02/23/18 05:50 Urine Glucose (UA) 3+ mg/dL (Normal) H 02/23/18 05:50 Urine Ketones Negative mg/dL (NEGATIVE) 02/23/18 05:50 Urine Blood 1+ (NEGATIVE) H 02/23/18 05:50 Urine Nitrate Negative (NEGATIVE) 02/23/18 05:50 Urine Bilirubin Negative (NEGATIVE) 02/23/18 05:50 Urine Urobilinogen Normal mg/dL (0.2-1.0) 02/23/18 05:50 Ur Leukocyte Esterase 3+ [place]/uL (Negative) H 02/23/18 05:50 Urine WBC (Auto) 163 /hpf (0-5) H 02/23/18 05:50 Urine RBC (Auto) 11 /hpf (0-3) H 02/23/18 05:50 Ur Squamous Epith Cells < 1 /hpf (0-5) 02/23/18 05:50 Urine Bacteria Few (<OCC) H 02/23/18 05:50 Urine Yeast (Budding) Few /hpf (NEGATIVE) H 02/23/18 05:50 Influenza Typ A,B (EIA) Negative for flu a/b (NEGATIVE) 02/22/18 Unknown - Hospital Course Hospital Course: Pt seen and evalauted, improving, is cleared for discharge Discharge Exam - Head Exam Head Exam: ATRAUMATIC, NORMAL INSPECTION, NORMOCEPHALIC Discharge Plan - Discharge Medications Prescriptions: Levofloxacin [Levaquin] 750 mg PO DAILY 5 Days tablet Benzonatate [Tessalon Perles] 100 mg PO TID #45 sgl - Follow Up Plan Condition: GOOD Disposition: HOME/ ROUTINE Instructions: Levofloxacin (Systemic), Pneumonia, Adult (DC), Chest Pain (DC), Diabetes Type 2 (DC), Benzonatate, Diabetes and Diet Additional Instructions: FOLLOW UP WITH DR IGLESIAS IN 1-2 WEEK AT HIS OFFICE ---CALL FOR APPOINTMENT CONTINUE ALL YOU HOME MEDICATION NEW PRESCRIPTION BY IMD LEVAQUIN PO FOR 5 DAYS TESSALON PO TID FOR COUGH ACTIVITY TOLERATED CALL DR IGLESIAS OR GO TO THE EMERGENCY ROOM IF SYMPTOMS RETURN OR WORSENING Referrals: Aakash Iglesias MD [Staff Provider] -
== END 2018-02-25 13:30 | disposition home or self-care (01) | DRG 90 ==
LOC: C.ER 15:28 → C.9E 20:48 → C.9I 02-23 02:41 → C.5S 02-24 05:58
PROVIDERS: ADMIT Internal Medicine; ATTEND Internal Medicine
DX: J18.9 Pneumonia, unspecified organism (principal); R07.89 Other chest pain; E11.9 Type 2 diabetes mellitus without complications; I10 Essential (primary) hypertension; E04.1 Nontoxic single thyroid nodule; E78.00 Pure hypercholesterolemia, unspecified; Z87.01 Personal history of pneumonia (recurrent); Z95.5 Presence of coronary angioplasty implant and graft